=== PATIENT | female | born 1960 | race Caucasian/White ===

== ENCOUNTER 2021-08-22 23:45 | Observation (INO) | payer OTHER, SELFPAY ==
--- NOTE | ~2021-08-22 | CT_ITS ---
EXAMINATION: CT abdomen pelvis w con DATE: 08/23/2021 01:10 INDICATION: Left lower quadrant pain TECHNIQUE: Computed tomography (CT) of the abdomen and pelvis was performed with 100 cc Omnipaque 350 intravenous contrast. The dose-length product was 405.14 mGy-cm. Automated exposure control and iter ative reconstruction technique were employed. COMPARISON: None. FINDINGS: Lung bases are unremarkable. Heart size is normal. No significant pleural or pericardial ef fusion. Small hiatal hernia. There is a dilated appendix measuring 12 mm with surrounding inflammation, consistent with acute appe ndicitis. No evidence for perforation or abscess. Status post cholecystectomy with expected prominenc e of the bile ducts. The pancreas, adrenal glands are unremarkable. There is hepatosplenomegaly. There are small low-densi ty lesions in both kidneys, most likely cysts. There are nonobstructing left renal stones. Uterus is surgically absent. No free air or free fluid. IMPRESSION: 1. Acute uncomplicated appendicitis. 2: Hepatosplenomegaly Reviewed, dictated and finalized at location A. MAN
[2021-08-22 23:52] VITALS: BP 147/101; PULSE 87; RESP 20; TEMP 37; O2SAT 97
[2021-08-23] VITALS (17 sets, daily range): BP systolic 91–128; BP diastolic 48–70; PULSE 64–84; RESP 10–18; TEMP 36.1–36.4; O2SAT 91–98; BMI 26.9
[2021-08-23] MEDS: HYDROmorphone HCL INJ (*CRX) 1 MG/ML SYR 0.5 MG IV PUSH ×4 (00:14→08:04)
[2021-08-23] MEDS: ONDANSETRON INJ 4 MG/2 ML VIAL IV PUSH (00:14)
[2021-08-23 00:15] LABS: Basophils Percent Auto 0.2 % (0.2-1.2); Eosinophils Percent Auto 0.1 % (0-4.4); Hematocrit 39.6 % (37.0-47.0); Hemoglobin 13.2 g/dL (12.0-15.0); Immature Granulocyte Percent A 0.6 % (0-0.5); Lymphocytes Percent Auto 8.8 % (18.3-44.2); Mean Corpuscular HGB Conc 33.3 g/dl (32-36); Mean Corpuscular Hemoglobin 28.9 pg (26-34); Mean Corpuscular Volume 86.7 fl (80-100); Mean Platelet Volume 9.1 fl (7.4-10.4); Monocytes Absolute Auto 0.7 K/mm3 (0.1-0.6); Monocytes Percent Auto 4.4 % (2.6-8.5); Neutrophils Absolute Auto 13.7 K/mm3 (1.3-6.7); Neutrophils Percent Auto 85.9 % (45.5-73.1); Platelet Count Result 268 k/mm3 (150-375); Red Blood Count 4.57 M/mm3 (4.2-5.4); Red Cell Distribution Width 14.5 % (11.5-14.5); White Blood Count 15.9 K/mm3 (4.5-10.0)
[2021-08-23] MEDS: SODIUM CHLORIDE 0.9% IV 1,000 ML 999 ML IV CONT (00:15)
--- NOTE | 2021-08-23 00:27 | ED.ABDPAIN ---
HPI - Abdominal Pain General Chief Complaint: Abdominal Pain Stated Complaint: Abd pain Time Seen by Provider: 08/22/21 23:51 Source: patient, family and RN notes reviewed Limitations: no limitations History of Present Illness HPI narrative: 60-year-old female presents to the emergency department for evaluation of mid to lower abdominal pain which started approximately 4 PM. Patient states over the course of the day the pain has progressed lower. Patient does report associated nausea. Patient also has had multiple bowel movements. Patient states she had no change in her pain after the bowel movements. Patient does have a past surgical history of cholecystectomy and hysterectomy. Patient denies any cardiac history. Patient takes no prescription medications. Patient does have a history of baseline tremor Related Data Home Medications Medication Instructions Recorded Confirmed No Home Medications 08/23/21 08/23/21 Allergies Allergy/AdvReac Type Severity Reaction Status Date / Time No Known Allergies Allergy Unverified 12/21/14 13:00 Review of Systems Review of Systems: CONSTITUTIONAL: Denies fever, chills, or sweats. EYES: Denies visual changes, redness, or discharge. ENT: Denies rhinorrhea, congestion, sore throat, or otalgia. CARDIOVASCULAR: Denies chest pain, palpitations, or edema. RESPIRATORY: Denies cough or dyspnea. GASTROINTESTINAL: Lower abdominal pain GENITOURINARY: Denies dysuria or hematuria. SKIN: Denies rash or itching. MUSCULOSKELETAL: Denies back pain, joint pain, or myalgia. PMFSH Social History Social History Alcohol intake: current Exam Narrative: APPEARANCE: Well appearing, no pain, no distress, well-nourished. HEAD: normocephalic, atraumatic. EYES: PERRLA/EOMI, conjunctivae clear. NOSE: Normal no drainage NECK: Supple. No adenopathy, no masses. RESPIRATORY: Airway patent, respirations nonlabored. Clear to auscultation bilaterally, no rales, rhonchi, wheezing. CARDIOVASCULAR: Regular rate and rhythm without murmurs rubs or gallops. ABDOMINAL: Normal bowel sounds some left lower quadrant and suprapubic tenderness to palpation MUSCULOSKELETAL: Moves all extremities. Strength/ROM intact, No edema, No calf tenderness. NEURO: Alert. Cranial nerves II through XII intact. Good gait. Good coordination. Does have baseline tremor SKIN: Warm, dry. Normal Color Course Course Emergency Course: Patient was updated on the plans for labs and imaging. Patient did request medications for nausea and for pain control. Patient was also started on IV fluids. Consultations Consultation #1: CT was read as acute nonperforated appendicitis. Case was discussed with Dr. Aguila, on-call for surgery. Patient was started on Zosyn Vital Signs Vital signs: Vital Signs Temperature 98.6 F 08/22/21 23:52 Pulse Rate 87 08/22/21 23:52 Respiratory Rate 20 08/22/21 23:52 Blood Pressure 147/101 H 08/22/21 23:52 Pulse Oximetry 97 08/22/21 23:52 Temperature 98.6 F 08/22/21 23:52 Pulse Rate 74 08/23/21 01:17 Respiratory Rate 16 08/23/21 01:17 Blood Pressure 122/66 08/23/21 01:17 Pulse Oximetry 98 08/23/21 01:17 MDM - Abdominal Pain Lab Data Attestation: I reviewed the patient's lab results. Result diagrams: 08/23/21 00:13 08/23/21 00:09 Labs: Lab Results 08/23/21 08/23/21 08/23/21 Range/Units 00:09 00:09 00:13 WBC 15.9 H (4.5-10.0) K/mm3 RBC 4.57 (4.2-5.4) M/mm3 Hgb 13.2 (12.0-15.0) g/dL Hct 39.6 (37.0-47.0) % MCV 86.7 (80-100) fl MCH 28.9 (26-34) pg MCHC 33.3 (32-36) g/dl RDW 14.5 (11.5-14.5) % Plt Count 268 (150-375) k/mm3 MPV 9.1 (7.4-10.4) fl Immature Gran % (Auto) 0.6 H (0-0.5) % Neut % (Auto) 85.9 H (45.5-73.1) % Lymph % (Auto) 8.8 L (18.3-44.2) % [place] % (Auto) 4.4 (2.6-8.5) % Eos % (Auto) 0.1 (0-4.4) % Baso % (Auto) 0.2 (0.2-1.2) % Lymph # (Auto)
[2021-08-23 00:32] LABS: Add Urine Microscopic? NO; Appearance Urine Clear (Clear); Bilirubin Urine Negative (Negative); Blood Urine Negative (Negative); Color Urine Straw (Yellow); Glucose Urine UA Negative (Negative); Ketones Urine Negative (Negative); Leukocyte Esterase Ur Negative LEU/UL (Negative); Nitrate Urine Negative (Negative); Protein Urine Negative (Negative); Urobilinogen Urine Negative mg/dL (<2.0)
[2021-08-23 00:38] LABS: Alanine Aminotransferase 30 U/L (4-35); Albumin Level 4.7 g/dL (3.5-5.1); Alkaline Phosphatase 123 U/L (38-126); Anion Gap 10 mmol/L (8-16); Aspartate Amino Transferase 33 U/L (14-36); Bilirubin,Total 0.8 mg/dL (0.2-1.3); Blood Urea Nitrogen 16 mg/dL (7-17); Calcium 10.3 mg/dL (8.4-10.2); Carbon Dioxide 22 mmol/L (22-30); Chloride 103 mmol/L (98-107); Estimated CRCL calculation 65 ml/min; Estimated Glomerular Filt Rate > 60; Glucose 140 mg/dL (65-110); Sodium 135 mmol/L (137-145)
[2021-08-23 00:43] LABS: Lactic Acid Reflex 0.9 mmol/L (0.7-2.1)
[2021-08-23 00:45] LABS: Specific Grav Ur 1.004 (1.001-1.035)
[2021-08-23] MEDS: SODIUM CHLORIDE 0.9% IV 1,000 ML 125 ML IV CONT (02:20)
[2021-08-23 02:42] LABS: SARS-CoV-2 RNA PCR Negative
--- NOTE | 2021-08-23 03:20 | ADMGEN ---
This patient, Talia Harman, was admitted to Medical Room 349-01. Patient/family oriented to hospital policies and general routines including ID bracelet, bed and alarms, visiting hours, pain management, procedures, bathroom and other care routines, personal items, smoking policy, room service/diet, and visiting hours. Information on how to activate the Rapid Response Team has been discussed. Patient/Family are encouraged to report perceived risks to care and to ask questions if they do not understand what they are told or what they should do.
--- NOTE | 2021-08-23 07:32 | PM.IMHP ---
H&P: HPI History of Present Illness Date/Time: 08/23/21 07:32 This is a 60-year-old White female who presented last night to the emergency department for evaluation of mid to lower abdominal pain which started approximately 4 PM o 08/22/2021. Patient states over the course of the day the pain had progressed lower in the abd. and is more Rt. sided. Patient does report associated nausea. Patient also has had multiple bowel movements. Patient states she had no change in her pain after the bowel movements. Patient does have a past surgical history of cholecystectomy and hysterectomy. Patient denies any cardiac history. Patient takes no prescription medications. She is a 1 PPD smoker. Patient does have a history of baseline tremo Chief Complaint: Right lower abdominal pain Review of Systems Constitutional: Constitutional: Reports no additional constitutional complaints, Reports fatigue and Denies malaise Eyes: Eyes: Denies change in vision and Denies loss of vision ENT: Reports Normal hearing present, Denies change in voice, Denies dizziness, Denies hoarseness and Denies sore throat Cardiovascular: Cardiovascular: Denies chest pain, Denies leg edema and Denies dyspnea Respiratory: Respiratory: Denies cough, Denies dyspnea and Denies wheezing Comments: 40 pack-year history of smoking No recent screening for lung cancer Gastrointestinal: Gastrointestinal: Denies hematochezia, Denies change in bowel habits, Denies heartburn and Reports nausea ( mild upon presentation to the ED) Genitourinary: Genitourinary: Denies urinary frequency, Reports nocturia and Denies urinary incontinence Neurologic: Reports Normal hearing present, Denies confusion, Denies dizziness, Denies loss of vision, Denies memory loss and Denies seizure-like activity Psychiatric: Psychiatric: Denies confusion, Denies depression and Denies memory loss Endocrine: Endocrine: Denies cold intolerance and Reports fatigue Hematologic/Lymphatic: Hematologic/Lymphatic: Denies easy bleeding and Denies easy bruising Allergic/Immunologic: Allergic/Immunologic: Denies wheezing PMFSH Past Medical History Medical History (Updated 08/23/21 @ 12:04 by Amrit Aguila MD) COPD (chronic obstructive pulmonary disease) Ovarian cancer in remission Tobacco abuse Tremor Surgical History Surgical History History of hysterectomy with bilateral oophorectomy History of laparoscopic cholecystectomy Family History Family History Mother Kidney failure Father Diabetes mellitus FHx: kidney cancer Sibling Diabetes mellitus Social History Social History Smoking packs per day: 1 Smoking cigarettes per day: 20.0 Smoking status: Current every day smoker Alcohol intake: never Substance use: never Spiritual care concerns: No Meds Home Medications and Allergies Home Medications Medication Instructions Recorded Confirmed Type acidophilus-pectin, citrus 1 cap PO DAILY 08/23/21 08/23/21 History [Acidophilus Probiotic] aspirin [Low-Dose Aspirin] 81 mg PO DAILY 08/23/21 08/23/21 History bismuth subsalicylate 2 tablet PO Q1H PRN 08/23/21 08/23/21 History [Pepto-Bismol] calcium 1,200 mg PO DAILY 08/23/21 08/23/21 History cholecalciferol (vitamin D3) 25 mcg PO DAILY 08/23/21 08/23/21 History [Vitamin D3] ibuprofen [Advil] 200 mg PO QID PRN 08/23/21 08/23/21 History fwwer-ha-4-yna-bye-yovjpmx-ast 1 cap PO BID 08/23/21 08/23/21 History [krill oil] multivit with min-folic acid 1 tablet PO DAILY 08/23/21 08/23/21 History [Adult One Daily Multivitamin] azqvfcogvjnn-thttiriw-psdhjg 1 tablet PO DAILY 08/23/21 08/23/21 History [Centrum Silver] vitamin B complex 1 cap PO DAILY 08/23/21 08/23/21 History Allergies Allergy/AdvReac Type Severity Reaction Status Date / Time leandro
--- NOTE | 2021-08-23 09:21 | ECG_ITS ---
Measurements Intervals [place] Rate: 78 P: 42 IA: 165 QRS: -19 QRSD: 89 T: 24 QT: 372 QTc: 426 Interpretive Statements SINUS RHYTHM BORDERLINE R WAVE PROGRESSION, ANTERIOR LEADS BORDERLINE ST-T WAVE ABNORMALITY- INF/LAT LEADS BASELINE ARTIFACT- I, II, III, AVR, AVL, AVF, V4-V5 BORDERLINE ECG Electronically Signed On 08-23-2021 14:21:42 [employer]IVER by Sean Guardado D.O.
--- NOTE | 2021-08-23 09:40 | PC.NURSE ---
Pt down to surgery
--- NOTE | 2021-08-23 09:46 | WPDANESEPPF ---
Anes - Initial Pre Proc Eval Procedure: Operation Date: 08/23/21 09:30 Proposed Procedures p Laparoscopic Appendectomy - Amrit Aguila MD Date/Time: 08/23/21 09:46 Surgeon: Amrit Aguila MD Pre Op Diagnosis: Acute Appendicitis Patient Data Age: 60 Gender: F Height: 1.65 m Weight: 73.3 kg Last Vital Signs Temp 36.2 C L 08/23/21 06:00 Pulse 74 08/23/21 06:00 Resp 16 08/23/21 06:00 BP 101/62 08/23/21 06:00 Pulse Ox 93 08/23/21 06:00 Allergies Allergy/AdvReac Type Severity Reaction Status Date / Time apple AdvReac Itching Verified 08/23/21 07:24 Home Medications Medication Instructions Recorded Confirmed Type acidophilus-pectin, citrus 1 cap PO DAILY 08/23/21 08/23/21 History [Acidophilus Probiotic] aspirin [Low-Dose Aspirin] 81 mg PO DAILY 08/23/21 08/23/21 History bismuth subsalicylate 2 tablet PO Q1H PRN 08/23/21 08/23/21 History [Pepto-Bismol] calcium 1,200 mg PO DAILY 08/23/21 08/23/21 History cholecalciferol (vitamin D3) 25 mcg PO DAILY 08/23/21 08/23/21 History [Vitamin D3] ibuprofen [Advil] 200 mg PO QID PRN 08/23/21 08/23/21 History aqbaq-is-0-qrt-lsr-rlagsjs-ast 1 cap PO BID 08/23/21 08/23/21 History [krill oil] multivit with min-folic acid 1 tablet PO DAILY 08/23/21 08/23/21 History [Adult One Daily Multivitamin] qeplvwiwlgog-fdonntch-omvyds 1 tablet PO DAILY 08/23/21 08/23/21 History [Centrum Silver] vitamin B complex 1 cap PO DAILY 08/23/21 08/23/21 History Laboratory Tests 08/23/21 08/23/21 08/23/21 00:09 00:09 00:13 WBC 15.9 K/mm3 H K/mm3 (4.5-10.0) RBC 4.57 M/mm3 M/mm3 (4.2-5.4) Hgb 13.2 g/dL g/dL (12.0-15.0) Hct 39.6 % % (37.0-47.0) MCV 86.7 fl fl (80-100) MCH 28.9 pg pg (26-34) MCHC 33.3 g/dl g/dl (32-36) RDW 14.5 % % (11.5-14.5) Plt Count 268 k/mm3 k/mm3 (150-375) MPV 9.1 fl fl (7.4-10.4) Immature Gran % (Auto) 0.6 % H % (0-0.5) Neut % (Auto) 85.9 % H % (45.5-73.1) Lymph % (Auto) 8.8 % L % (18.3-44.2) [place] % (Auto) 4.4 % % (2.6-8.5) Eos % (Auto) 0.1 % % (0-4.4) Baso % (Auto) 0.2 % % (0.2-1.2) Lymph # (Auto) 1.40 K/mm3 K/mm3 (0.9-3.2) [place] # (Auto) 0.7 K/mm3 H K/mm3 (0.1-0.6) Eos # (Auto) 0.0 K/mm3 K/mm3 (0-0.3) Baso # (Auto) 0.0 K/mm3 K/mm3 (0.0-0.1) Abs Immat Gran (auto) 0.10 K/mm3 H K/mm3 (0.00-0.031) Absolute Neuts (auto) 13.7 K/mm3 H K/mm3 (1.3-6.7) Absolute Nucleated RBC 0.0 K/mm3 K/mm3 (0.0-0.012) Nucleated RBC % 0.0 % % (0.0-0.2) Sodium 135 mmol/L L mmol/L (137-145) Potassium 4.0 mmol/L mmol/L (3.4-5.0) Chloride 103 mmol/L mmol/L (98-107) Carbon Dioxide 22 mmol/L mmol/L (22-30) Anion Gap 10 mmol/L mmol/L (8-16) BUN 16 mg/dL mg/dL (7-17) Creatinine 0.70 mg/dL mg/dL (0.7-1.0) Estim Creat Clear Calc 65 ml/min ml/min Estimated GFR > 60 (59 - ) Glucose 140 mg/dL H mg/dL (65-110) Lactic Acid 0.9 mmol/L mmol/L (0.7-2.1) Calcium 10.3 mg/dL H mg/dL (8.4-10.2) Total Bilirubin 0.8 mg/dL mg/dL (0.2-1.3) AST 33 U/L U/L (14-36) ALT 30 U/L U/L (4-35) Alkaline Phosphatase 123 U/L U/L (38-126) Total Protein 9.0 g/dL H g/dL (6.3-8.2) Albumin 4.7 g/dL g/dL (3.5-5.1) Urine Color Urine Appearance Urine pH Ur Specific [place] Urine Protein Urine Glucose (UA) Urine Ketones Ur Blood (Man) Urine Nitrate Urine Bilirubin Urine Urobilinogen Leukocyte Esterase Rfl SARS-CoV-2 RNA (RT-PCR) 08/23/21
[2021-08-23] MEDS: BUPIVACAINE/EPINEPHRINE 0.5% 30 ML VIAL 20 ML INFILTRATE (10:38)
[2021-08-23] MEDS: LACTATED RINGERS 1,000 ML 30 ML IV CONT ×2 (11:45→12:30)
--- NOTE | 2021-08-23 12:05 | W.PM.PROC2 ---
Procedure Note - Detailed Date of Procedure 08/23/21 Pre-op Diagnosis Acute uncomplicated Appendicitis Post-op Diagnosis same Procedure Performed laparoscopic appendectomy Surgeon Amrit Aguila MD [employer] Consultant Collin STEWART. [facility] Anesthesia general Description of Procedure The patient was seen again in her hospital Room. The risks, benefits, complications, treatment options, and expected outcomes were discussed with the patient and/or family. The possibilities of reaction to medication, pulmonary aspiration, perforation of viscus, bleeding, recurrent infection, finding a normal appendix, the need for additional procedures, failure to diagnose a condition, and creating a complication requiring transfusion or operation were discussed. There was concurrence with the proposed plan and informed consent was obtained. The site of surgery was properly noted/marked. The patient was taken to Operating Room, and a time out was preformed which identified this as the proper patient, and the procedure verified as laparoscopic appendectomy, possible open. The patient was placed in the supine position and general anesthesia was induced, along with placement of an orogastric tube, SCD hose, and a Linder catheter. The abdomen was prepped and draped in a sterile fashion. A 5 mm left upper quadrant subcostal incision was made and the peritoneal cavity was accessed using the Veress needle technique. Once the abdomen was insufflated to 14 mmHg pressure a 5 mm XL trocar over the 0? 5 mm scope was carefully twisted into the abdomen via the umbilicus. The pneumoperitoneum was then established to steady pressure of 14 mm Hg. A 12 mm laparoscopic port was placed through a transverse suprapubic incision. An additional 5 mm cannula was then placed in the latoya-umbilical area under direct vision. A careful evaluation of the entire abdomen was carried out. The patient was placed in Trendelenburg and left lateral decubitus position. The small intestines were retracted in the cephalad and left lateral direction away from the pelvis and right lower quadrant. The patient was found to have an enlarged and inflamed appendix that was extending into the retrocecal area behind the junction of the ileum and cecum. It was somewhat difficult to rotate up but using the L-shaped Bovie cautery hook and careful blunt dissection with a Kittner I was able to rotate the appendix up to we could see it better. There was no evidence of perforation. The appendix was carefully dissected. Once it was free a 45 mm ethicon endogastroentestinal stapler with a vascular load was placed across the mesoappendix. This was fired and hemostasis was checked along the staple line and appeared to be adequate. For this patient, this divided the entire mesoappendix and we were able to proceed immediately to stapling off the appendix at it's junction with the cecum. The appendix was then divided at its base using the same 45 mm stapler with a 3.5 mm bowel wall load. Minimal appendiceal stump was left in place. There was no evidence of bleeding, leakage, or complication after division of the appendix at its junction with the cecum.. The appendix was then placed in an endobag which had been brought through the 12 mm suprapubic port site. The appendix and the bag were then extracted through this larger port site in the suprapubic position. The suprapubic port site was closed using a #1 Polysorb suture passed with a Christiano-Higginbotham cone and needle suture passer at the level of the fascia. The trocar site skin wounds were closed using 4-0 undyed Monocryl and surgical glue. Instrument, sponge, and needle counts were correct at the conclusion of the case. Implants none Estimated Blood Loss -10.0 Urine Output -25.0 Drains No Packing No Pathology yes (appendix) Complications No immediate complications Condition stable Disposition PACU
--- NOTE | 2021-08-23 18:48 | PM.DS ---
DS: Admitting Diagnosis Discharge Date 08/23/2021 Admitting Diagnosis Acute uncomplicated appendicitis DS: Discharge Diagnosis Discharge Diagnosis (1) Acute appendicitis: Onset Date: ~08/22/21 Qualifiers: Acute appendicitis type: unspecified acute appendicitis type Qualified Code(s): K35.80 - Unspecified acute appendicitis Code(s): K35.80 - Unspecified acute appendicitis Status: Acute Assessment and Plan: This was the main reason for the patient's admission. She was an observation admission because she would stay a short visit with either surgical or antibiotic treatment options. After a thorough discussion the patient had selected a surgical option and laparoscopic appendectomy was performed. There was no sign of perforation. Therefore, antibiotics were stopped after her preop dose and she was advanced on her diet postoperatively. She was feeling well on the evening of the night of day of surgery so having discussed these week things with her previously and with her nurse she is discharged at this time. (2) Essential tremor: Onset Date: Unknown Code(s): G25.0 - Essential tremor Status: Acute Assessment and Plan: patient is not a medication for this routinely. She will discuss this further on her 1st visit with Dr. Carlson. She may want to have something available for more stressful situations as this seems to be at worst during those times. However, she prefers not to have a continuous medication for if possible. (3) Cigarette smoker: Onset Date: Unknown Code(s): F17.210 - Nicotine dependence, cigarettes, uncomplicated Status: Acute Assessment and Plan: I did spend time discussing with her both pre and postoperatively the recommendation for smoking cessation. Paperwork was provided to her on discharge she will strongly consider stopping smoking. Also discussed this with her during her postop period I called him about her situation and recovery surgery from the recovery room. He will be supportive. I encouraged her to discuss this openly with Robyn when she has her 1st visit with their practice. I also briefly mentioned and encouraged the possibility of a low-dose CT scan of the chest to screen for lung cancer. I believe she will be of the age and amount of smoking that would qualify her for that screening test. DS: Summary Hospital Course Hospital Course: Patient presented to the emergency room with lower abdominal pain. This has been ongoing for less than 24 hours period please see history and physical further details.The patient had selected a surgical option and laparoscopic appendectomy was performed. There was no sign of perforation. Therefore, antibiotics were stopped after her preop dose and she was advanced on her diet postoperatively. She was feeling well on the evening of the night of day of surgery so having discussed these week things with her previously and with her nurse she is discharged at this time. I discussed discharge with the patient. I encouraged her to limit her core body exercises until she visits with me in the postop period around 2 weeks from now. She may walk as much as she is comfortable and other structures are in the discharge instructions below. Time spent discussing smoking cessation with patient: 3 to 10 minutes Status at Discharge Cognitive/behavioral status at discharge: normal Functional status at discharge: independent ambulation Overall status at discharge: patient is not back to baseline ( Still has some limitations of the core due to her incisions.) Time Spent with Patient Time attestation: Total time spent providing and/or coordinating discharge services: Time spent: Less than 30 minutes Exam Const: General: cooperative, comfortable, alert and awake Orientation/consciousness: patient oriented x3 HENMT: Head: normal to inspection Mouth: Yes moist mucous membranes Eyes: Scle
== END 2021-08-23 17:10 | disposition home or self-care (01) ==
LOC: ANHED 08-23 01:44 → ANH3MED 08-23 02:48
PROVIDERS: Admitting Provider Surgery; Emergency Provider Emergency Medicine; PCP Family Medicine; Visit Provider Surgery
PROC: 0DTJ4ZZ Resection of Appendix, Percutaneous Endoscopic Approach (ICD-10-PCS; CPT 44970; principal; 2021-08-23 09:30)
DX: K35.30 Acute appendicitis with localized peritonitis, without perforation or gangrene (principal); K38.1 Appendicular concretions; R10.31 Right lower quadrant pain; F17.210 Nicotine dependence, cigarettes, uncomplicated; G25.0 Essential tremor; Z20.822 Contact with and (suspected) exposure to COVID-19; Z85.43 Personal history of malignant neoplasm of ovary; Z79.82 Long term (current) use of aspirin; Z90.49 Acquired absence of other specified parts of digestive tract; Z90.710 Acquired absence of both cervix and uterus
CPT/HCPCS: 44970; 36415; 74177; 80053; 81003; 83605; 85025; 88304; 93005; 96361; 96365; 96375; 96376; 99285; C9803; G0378; J0131; J1100; J1170; J2250; J2370; J2405; J2543; J2704; J2710; J3010; J7030; J7120; Q9967; U0003; U0005

== ENCOUNTER 2021-11-12 07:46 | Outpatient (CLI) | payer OTHER, SELFPAY ==
--- NOTE | ~2021-11-12 | MM_ITS ---
EXAMINATION: MM screening lupe BI w oscar HISTORY: Screening TECHNIQUE: Craniocaudal and mediolateral oblique 3-D tomosynthesis images were obtained and synthetic 2-D images were generated. CAD analysis was submitted and interpreted. COMPARISON: Comparison to multiple prior studies sequentially, with oldest reviewed study dated 11/08. BREAST PARENCHYMAL COMPOSITION: There are scattered areas of fibroglandular density. FINDINGS: There is no evidence of suspicious mass, calcification, or architectural distortion to sugg est malignancy in either breast. There has been no suspicious interval change. IMPRESSION: 1. No mammographic evidence of malignancy. 2. Recommend routine screening mammography in one year. BI-RADS Category 1: Negative Reviewed, dictated and finalized at location A.
== END 2021-11-12 07:47 | disposition home or self-care (01) ==
PROVIDERS: PCP Family Medicine; Visit Provider Family Medicine
DX: Z12.31 Encounter for screening mammogram for malignant neoplasm of breast (principal)
CPT/HCPCS: 77063; 77067

== ENCOUNTER 2022-05-09 09:16 | Emergency (ER) | payer OTHER, SELFPAY ==
[2022-05-09] VITALS (11 sets, daily range): BP systolic 136–153; BP diastolic 63–112; PULSE 72–92; RESP 16–25; O2SAT 81–97
--- NOTE | ~2022-05-09 | XR_ITS ---
EXAMINATION: XR chest 2V DATE: 05/09/2022 09:50 INDICATION: Left-sided chest pain radiating into the neck TECHNIQUE: PA and lateral views of the chest were obtained. COMPARISON: None FINDINGS: Mild biapical pleural-parenchymal scarring. No other airspace opacities, pulmonary edema, pleural eff usion or pneumothorax. The cardiomediastinal silhouette is normal. Mild thoracic spondylosis with mil d anterior wedging of a midthoracic vertebral body. IMPRESSION: 1. No acute cardiopulmonary disease. Reviewed, dictated and finalized at location A.
--- NOTE | 2022-05-09 09:20 | ECG_ITS ---
Measurements Intervals [place] Rate: 89 P: 43 FL: 159 QRS: -34 QRSD: 88 T: 58 QT: 337 QTc: 412 Interpretive Statements SINUS RHYTHM MARKED LEFT AXIS DEVIATION [QRS AXIS < -30] Poor R-wave progression COMPARED TO ECG 08/23/2021 09:38:06 NO SIGNIFICANT CHANGE Electronically Signed On 05-09-2022 19:45:30 CDT by Sarai Guy M.D.
--- NOTE | 2022-05-09 09:30 | ED.CHESTPAIN ---
HPI - Chest Pain General Chief Complaint: Chest Pain Stated Complaint: CP Time Seen by Provider: 05/09/22 09:19 History of Present Illness HPI narrative: Patient is a 61-year-old female with a history of smoking here for evaluation of pain in her right axilla and breast over the past day. Patient states the pain is described as a stabbing sensation, not provoked by exertion or certain positions, but is worse when she pushes on the area. Patient taking baby aspirin this morning with relief of her symptoms. She has also been experiencing neck pain over the past 3 days on the right side, sharp and stabbing, shooting down her arm. Patient has been treated for pneumonia by her PCP, her symptoms have improved but she has still been coughing over the past several weeks. Denies any shortness of breath, fevers, chills, leg swelling. Related Data Home Medications Medication Instructions Recorded Confirmed acidophilus 100 million 1 cap PO DAILY 08/23/21 04/21/22 cell-pectin, citrus 10 mg capsule aspirin 81 mg tablet 81 mg PO DAILY 08/23/21 04/21/22 calcium 600 mg capsule 1,200 mg PO DAILY 08/23/21 04/21/22 cholecalciferol (vitamin D3) 25 25 mcg PO DAILY 08/23/21 04/21/22 mcg (1,000 unit) capsule (Vitamin D3) krill 1,000 mg-omega-3 170 mg-dha 1 cap PO BID 08/23/21 04/21/22 50 mg-epa 80 jm-nraxwq-lulhn capsule (krill oil) qynpyvmaybfm-fakrkxsh-xoxtsz tablet 1 tablet PO DAILY 08/23/21 04/21/22 vitamin B complex 1 cap PO DAILY 08/23/21 04/21/22 apple cider vinegar 500 mg tablet mg PO 09/15/21 04/21/22 Allergies Allergy/AdvReac Type Severity Reaction Status Date / Time apple AdvReac Itching Verified 05/09/22 10:14 Review of Systems Review of Systems: Gen: Denies fevers or chills Eyes: Denies eye pain or visual change ENT: Denies congestion Respiratory: Reports cough. Denies shortness of breath CV: Denies chest pain or palpitations GI: Denies abdominal pain nausea, emesis or diarrhea : denies burning, urgency, frequency or hematuria Musculoskeletal: Reports pain in the right axilla/breast. Denies back pain or muscle pain Neuro: Denies numbness, tingling, weakness or focal weakness Skin: Denies rash Except as documented, all other systems reviewed and negative PMFSH Past Medical History Medical History COPD (chronic obstructive pulmonary disease) History of skin cancer History of uterine cancer Ovarian cancer in remission Tobacco abuse Tremor Surgical History Surgical History History of hysterectomy with bilateral oophorectomy History of laparoscopic appendectomy 08/23/21 History of laparoscopic cholecystectomy Family History Family History Mother Kidney failure Father Diabetes mellitus FHx: kidney cancer Sibling Diabetes mellitus Social History Social History Smoking packs per day: 1 Smoking cigarettes per day: 20.0 Smoking status: Current every day smoker Tobacco type: cigarettes Second hand tobacco smoke exposure: No Alcohol intake: never Alcohol use details: rare Substance use: never Substance use type: does not use Gender identity (if verbalized by the patient): Female Sexual Orientation (if Verbalized by the Patient): Straight or Heterosexual Spiritual care concerns: No Exam Narrative: APPEARANCE: Well appearing, no pain in distress, well-nourished. Head: Normocephalic and atraumatic. EYES: PERRLA/EOMI, conjunctivae clear NOSE: No nasal drainage EARS: External ear normal in appearance THROAT: Oropharynx is clear. Mucous membranes are moist. NECK: Supple. No adenopathy, no masses. RESPIRATORY: Airway patent, respirations nonlabored. Clear to auscultation bilaterally, no rales, rhonchi, wheezing. CARDIOVASCULAR: Regular rate and rhyt
[2022-05-09 09:54] LABS: Basophils Percent Auto 0.3 % (0.2-1.2); Eosinophils Absolute Auto 0.1 K/mm3 (0-0.3); Eosinophils Percent Auto 1.5 % (0-4.4); Hematocrit 38.6 % (37.0-47.0); Hemoglobin 12.7 g/dL (12.0-15.0); Immature Granulocyte Absolute 0.03 K/mm3 (0.00-0.031); Immature Granulocyte Percent A 0.4 % (0-0.5); Lymphocytes Absolute Auto 1.38 K/mm3 (0.9-3.2); Lymphocytes Percent Auto 18.3 % (18.3-44.2); Mean Corpuscular HGB Conc 32.9 g/dl (32-36); Mean Corpuscular Hemoglobin 28.2 pg (26-34); Mean Corpuscular Volume 85.6 fl (80-100); Mean Platelet Volume 9.5 fl (7.4-10.4); Monocytes Absolute Auto 0.5 K/mm3 (0.1-0.6); Monocytes Percent Auto 6.5 % (2.6-8.5); Neutrophils Absolute Auto 5.5 K/mm3 (1.3-6.7); Platelet Count Result 234 k/mm3 (150-375); Red Blood Count 4.51 M/mm3 (4.2-5.4); Red Cell Distribution Width 13.9 % (11.5-14.5); White Blood Count 7.5 K/mm3 (4.5-10.0)
[2022-05-09 10:07] LABS: Alanine Aminotransferase 26 U/L (6-35); Albumin Level 4.2 g/dL (3.5-5.1); Alkaline Phosphatase 90 U/L (38-126); Anion Gap 13 mmol/L (8-16); Aspartate Amino Transferase 37 U/L (14-36); Bilirubin,Total 0.5 mg/dL (0.2-1.3); Blood Urea Nitrogen 21 mg/dL (7-17); Calcium 8.6 mg/dL (8.4-10.2); Carbon Dioxide 22 mmol/L (22-30); Chloride 108 mmol/L (98-107); Estimated Glomerular Filt Rate > 60; Glucose 134 mg/dL (65-110); Lipase 114 U/L (23-300); Potassium 3.6 mmol/L (3.4-5.0); Sodium 143 mmol/L (137-145)
[2022-05-09 10:08] LABS: INR 0.9; Partial Thromboplastin Time 26.4 SECONDS (22.3-36.8)
[2022-05-09 10:18] LABS: Troponin I < 0.012 ng/mL (0.000-0.034)
== END 2022-05-09 11:16 | disposition home or self-care (01) ==
PROVIDERS: Emergency Provider Emergency Medicine; PCP Family Medicine
DX: R07.89 Other chest pain (principal); J44.9 Chronic obstructive pulmonary disease, unspecified; Z85.828 Personal history of other malignant neoplasm of skin; Z85.42 Personal history of malignant neoplasm of other parts of uterus; Z85.43 Personal history of malignant neoplasm of ovary; Z90.710 Acquired absence of both cervix and uterus; Z90.722 Acquired absence of ovaries, bilateral; F17.210 Nicotine dependence, cigarettes, uncomplicated; Z79.82 Long term (current) use of aspirin
CPT/HCPCS: 36415; 71046; 80053; 83690; 84484; 85025; 85610; 85730; 93005; 99284

== ENCOUNTER 2023-09-21 13:01 | Emergency (ER) | payer OTHER, SELFPAY ==
--- NOTE | ~2023-09-21 | CT_ITS ---
EXAMINATION: CT abdomen pelvis w con DATE: 09/21/2023 19:37 INDICATION: Low abdominal pain. Bloating. TECHNIQUE: Computed tomography (CT) of the abdomen and pelvis was performed with 100 mL Omnipaque 350 intravenous contrast. Automated exposure control and iterative reconstruction technique were employe d. The dose-length product was 302.65 mGy-cm. COMPARISON: CT abdomen and pelvis 08/23/2021 FINDINGS: The visualized portions of the lung bases demonstrate emphysema and mild atelectasis. No pl eural effusion. The heart size is normal. No pericardial effusion. The liver is normal. There are johnna nges of cholecystectomy. The spleen, pancreas, and adrenal glands are normal. There are cysts in the kidneys measuring up to 18 mm on the left. There are no dilated loops of bowel. There are changes of appendectomy. Aortic atherosclerosis is noted. There are no pathologically enlarged lymph nodes. Ther e is no free intraperitoneal fluid. There is mild thoracic and lumbar spondylosis. 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 IMPRESSION: 1. No etiology for the patient's symptoms. Reviewed, dictated and finalized at location E. [employer]
--- NOTE | 2023-09-21 13:41 | ED.ABDPAIN ---
HPI - Abdominal Pain General Chief Complaint: Abdominal Pain <Marta Silva PA-C - Last Filed: 09/24/23 00:44> Stated Complaint: abd pain <Marta Silva PA-C - Last Filed: 09/24/23 00:44> Time Seen by Provider: 09/21/23 13:41 <Marta Silva PA-C - Last Filed: 09/24/23 00:44> Focused HPI: This is a 62 year old female that presents to the ER for lower abdominal pain. Worsening since yesterday. Reports associated nausea and urinary frequency. Denies fever, vomiting, diarrhea. GENERAL: Well-appearing, well-nourished, and in no acute distress. HEAD: Normocephalic, atraumatic. CHEST: Clear to auscultation. ?No respiratory distress. HEART: Regular rate and rhythm.? NEURO: ?Alert and oriented x3. Patient screened in triage and initial orders placed.? ?Additional care and disposition to be based upon?diagnostic testing and treatment. <Marta Silva PA-C - Last Filed: 09/24/23 00:44> History of Present Illness HPI narrative: 62-year-old female presenting with abdominal pain. States that she has noticed over the last week or 2. It is in her lower abdomen and is worse with eating. Associated with bloating. No constipation or diarrhea, no melena or hematochezia. Reports urinary frequency but no dysuria or hematuria. No vomiting. No further complaints. <Liane Jones MD - Last Filed: 09/26/23 18:01> Related Data Home Medications: Home Medications Medication Instructions Recorded Confirmed acidophilus 100 million 1 cap PO DAILY 08/23/21 09/26/23 cell-pectin, citrus 10 mg capsule aspirin 81 mg tablet 81 mg PO DAILY 08/23/21 09/26/23 calcium 600 mg capsule 1,200 mg PO DAILY 08/23/21 09/26/23 cholecalciferol (vitamin D3) 25 25 mcg PO DAILY 08/23/21 09/26/23 mcg (1,000 unit) capsule (Vitamin D3) krill 1,000 mg-omega-3 170 mg-dha 1 cap PO BID 08/23/21 09/26/23 50 mg-epa 80 fl-znliqf-mevje capsule (krill oil) iwfymvnmdxjh-zengyvdh-etnbvq tablet 1 tablet PO DAILY 08/23/21 09/26/23 vitamin B complex 1 cap PO DAILY 08/23/21 09/26/23 apple cider vinegar 500 mg tablet mg PO 09/15/21 09/26/23 <Marta Silva PA-C - Last Filed: 09/24/23 00:44> Allergies/Adverse Reactions: Allergies Allergy/AdvReac Type Severity Reaction Status Date / Time apple AdvReac Itching Verified 09/26/23 08:17 <Marta Silva PA-C - Last Filed: 09/24/23 00:44> Review of Systems Review of Systems: All systems reviewed & are unremarkable except as noted in HPI and below <Liane Jones MD - Last Filed: 09/26/23 18:01> [facility] Past Medical History Medical History: Medical History COPD (chronic obstructive pulmonary disease) History of skin cancer History of uterine cancer Ovarian cancer in remission Tobacco abuse Tremor <Marta Silva PA-C - Last Filed: 09/24/23 00:44> Surgical History Surgical History: Surgical History History of hysterectomy with bilateral oophorectomy History of laparoscopic appendectomy 08/23/21 History of laparoscopic cholecystectomy <Marta Silva PA-C - Last Filed: 09/24/23 00:44> Family History Family History: Family History Mother Kidney failure Father Diabetes mellitus FHx: kidney cancer Sibling Diabetes mellitus <Marta Silva PA-C - Last Filed: 09/24/23 00:44> Social History Social History: Social History (Updated 09/26/23 @ 08:18 by Sweetie Ruvalcaba) Social History: Smoking packs per day: 1 Smoking cigarettes per day: 20.0 Smoking status: Current every day smoker Tobacco type: cigarettes Second hand tobacco smoke exposure: No Alcohol intake: never Alcohol use details: rarely Substance use: never Substance use type: does not use Do You Feel Safe in your Home?: Yes Lack of Transportation: No Lack of Food: Ne
[2023-09-21 13:47] VITALS: BP 140/92; PULSE 103; RESP 18; TEMP 36.5; O2SAT 97
[2023-09-21 14:52] LABS: Basophils Percent Auto 0.2 % (0.2-1.2); Eosinophils Percent Auto 0.3 % (0-4.4); Hematocrit 43.7 % (37.0-47.0); Hemoglobin 14.6 g/dL (12.0-15.0); Immature Granulocyte Absolute 0.05 K/mm3 (0.00-0.031); Immature Granulocyte Percent A 0.5 % (0-0.5); Lymphocytes Absolute Auto 1.44 K/mm3 (0.9-3.2); Lymphocytes Percent Auto 13.8 % (18.3-44.2); Mean Corpuscular HGB Conc 33.4 g/dl (32-36); Mean Corpuscular Hemoglobin 28.9 pg (26-34); Mean Corpuscular Volume 86.4 fl (80-100); Mean Platelet Volume 9.6 fl (7.4-10.4); Monocytes Absolute Auto 0.5 K/mm3 (0.1-0.6); Monocytes Percent Auto 4.9 % (2.6-8.5); Neutrophils Absolute Auto 8.4 K/mm3 (1.3-6.7); Neutrophils Percent Auto 80.3 % (45.5-73.1); Platelet Count Result 250 k/mm3 (150-375); Red Blood Count 5.06 M/mm3 (4.2-5.4); Red Cell Distribution Width 13.5 % (11.5-14.5); White Blood Count 10.5 K/mm3 (4.5-10.0)
[2023-09-21 15:02] LABS: Appearance Urine Clear (Clear); Bacteria Urine None Seen /hpf; Bilirubin Urine Negative (Negative); Blood Urine Negative (Negative); Color Urine Yellow (Yellow); Glucose Urine UA Negative (Negative); Ketones Urine Negative (Negative); Leukocyte Esterase Ur 1+ LEU/UL (Negative); Need Manual Microscopic Reviewed; Nitrate Urine Negative (Negative); Non Pathogenic Casts 0-2; Protein Urine Negative (Negative); RBC Urine 0-2 /hpf (0-2); Specific Grav Ur 1.002 (1.001-1.035); Squamous Epithelial Cell Urine None seen /hpf (Few); Urobilinogen Urine 0.2 mg/dL (<2.0); WBC Urine 0-5 /hpf; pH Urine 6.5 (5.0-9.0)
[2023-09-21 15:03] LABS: Add Urine Microscopic? YES
[2023-09-21 16:51] LABS: Alanine Aminotransferase 37 U/L (6-35); Albumin Level 4.7 g/dL (3.5-5.1); Alkaline Phosphatase 116 U/L (38-126); Anion Gap 9 mmol/L (8-16); Aspartate Amino Transferase 34 U/L (14-36); Bilirubin,Total 0.7 mg/dL (0.2-1.3); Blood Urea Nitrogen 13 mg/dL (7-17); Carbon Dioxide 24 mmol/L (22-30); Chloride 106 mmol/L (98-107); Estimated CRCL calculation 61 ml/min; Estimated Glomerular Filt Rate > 60; Glucose 101 mg/dL (65-110); Lipase 81 U/L (23-300); Potassium 3.9 mmol/L (3.4-5.0); Sodium 139 mmol/L (137-145)
[2023-09-21] MEDS: SODIUM CHLORIDE 0.9% IV 1,000 ML 999 ML IV CONT (18:29)
[2023-09-21] MEDS: KETOROLAC 30 MG/ML VIAL (*BKC) IV PUSH (18:30)
[2023-09-21 20:22] VITALS: BP 140/90; PULSE 95; RESP 16; O2SAT 97
== END 2023-09-21 20:22 | disposition home or self-care (01) ==
PROVIDERS: Physician Assistant; Emergency Provider Emergency Medicine; PCP Family Medicine
DX: R10.30 Lower abdominal pain, unspecified (principal); F17.210 Nicotine dependence, cigarettes, uncomplicated; J44.9 Chronic obstructive pulmonary disease, unspecified
CPT/HCPCS: 36415; 74177; 80053; 81001; 83690; 85025; 96361; 96374; 99284; J1885; J7030; Q9967

== ENCOUNTER 2023-11-25 13:52 | Outpatient (CLI) | payer OTHER, SELFPAY ==
--- NOTE | ~2023-11-25 | MM_ITS ---
EXAMINATION: MM screening lupe BI w oscar HISTORY: Screening mammogram TECHNIQUE: Craniocaudal and mediolateral oblique 3-D tomosynthesis images were obtained and synthetic 2-D images were generated. CAD analysis was submitted and interpreted. COMPARISON: November 12, 2021, June 18, 2016 bilateral screening mammogram examinations BREAST PARENCHYMAL COMPOSITION: There are scattered areas of fibroglandular density. FINDINGS: There is no evidence of suspicious mass, calcification, or architectural distortion to sugg est malignancy in either breast. There has been no suspicious interval change. IMPRESSION: 1. No mammographic evidence of malignancy. 2. Recommend routine screening mammography in one year. BI-RADS Category 1: Negative Reviewed, dictated and finalized at location B.
== END 2023-11-25 13:53 | disposition home or self-care (01) ==
LOC: ANHIMG 13:54
PROVIDERS: PCP Family Medicine; Visit Provider Family Medicine
DX: Z12.31 Encounter for screening mammogram for malignant neoplasm of breast (principal)
CPT/HCPCS: 77063; 77067

== ENCOUNTER 2024-04-19 10:33 | Emergency (ER) | payer OTHER, SELFPAY ==
--- NOTE | ~2024-04-19 | XR_ITS ---
XR chest 1V portable Ordering provider: Milind Rey MD History: 63 years Female with . URI symptoms x10 days . Comparison: May 09, 2022 FINDINGS: MEDIASTINUM: The cardiac silhouette is not enlarged. LUNGS: No infiltrates, effusions or pneumothorax. Slightly prominent markings bilaterally. OTHER: No free air under the diaphragm. IMPRESSION: No acute cardiopulmonary pathology. Reviewed, dictated and finalized at location A.
[2024-04-19 10:48] VITALS: BP 144/76; PULSE 110; RESP 17; TEMP 36.4; O2SAT 96
[2024-04-19 11:25] VITALS: RESP 20; O2SAT 99
[2024-04-19 11:26] LABS: Influenza A QL RT-PCR Negative (Negative); Influenza B QL RT-PCR Negative (Negative); SARS-CoV-2 RNA PCR Negative (Negative)
--- NOTE | 2024-04-19 11:32 | ECG_ITS ---
Test Date: 2024-04-19 12:08:55 Measurements Intervals [place] Rate: 89 P: 33 CO: 159 QRS: -37 QRSD: 88 T: 54 QT: 352 QTc: 429 Interpretive Statements SINUS RHYTHM WITH OCCASIONAL VENTRICULAR PREMATURE COMPLEXES MARKED LEFT AXIS DEVIATION [QRS AXIS < -30] No previous ECG available for comparison Electronically Signed On 04-19-2024 12:31:22 CDT by Stevie Mcdaniels M.D.
[2024-04-19] MEDS: KETOROLAC 15 MG/ML VIAL (*BKC) IV PUSH (12:01)
[2024-04-19] MEDS: DICYCLOMINE HCL INJ 20 MG/2 ML VIAL IM (12:01)
[2024-04-19] MEDS: SODIUM CHLORIDE 0.9% IV 2,000 ML 999 ML IV CONT (12:02)
[2024-04-19 12:27] LABS: Basophils Percent Auto 0.2 % (0.2-1.2); Eosinophils Percent Auto 0.2 % (0-4.4); Hematocrit 46.9 % (37.0-47.0); Hemoglobin 16.1 g/dL (12.0-15.0); Immature Granulocyte Absolute 0.06 K/mm3 (0.00-0.031); Immature Granulocyte Percent A 0.5 % (0-0.5); Lymphocytes Absolute Auto 1.33 K/mm3 (0.9-3.2); Mean Corpuscular HGB Conc 34.3 g/dl (32-36); Mean Corpuscular Hemoglobin 29.5 pg (26-34); Mean Corpuscular Volume 85.9 fl (80-100); Monocytes Absolute Auto 0.6 K/mm3 (0.1-0.6); Monocytes Percent Auto 4.1 % (2.6-8.5); Neutrophils Absolute Auto 11.3 K/mm3 (1.3-6.7); Platelet Count Result 371 k/mm3 (150-375); Red Blood Count 5.46 M/mm3 (4.2-5.4); Red Cell Distribution Width 12.9 % (11.5-14.5); White Blood Count 13.3 K/mm3 (4.5-10.0)
[2024-04-19 12:30] LABS: Add Urine Microscopic? NO; Appearance Urine Clear (Clear); Bilirubin Urine Negative (Negative); Blood Urine Negative (Negative); Color Urine Yellow (Yellow); Glucose Urine UA Negative (Negative); Ketones Urine Negative (Negative); Leukocyte Esterase Ur Negative LEU/UL (Negative); Nitrate Urine Negative (Negative); Protein Urine Negative (Negative); Specific Grav Ur 1.003 (1.001-1.035); Urobilinogen Urine 0.2 mg/dL (<2.0); pH Urine 6.5 (5.0-9.0)
[2024-04-19 12:37] LABS: Alanine Aminotransferase 33 U/L (6-35); Alkaline Phosphatase 128 U/L (38-126); Anion Gap 12 mmol/L (4-12); Aspartate Amino Transferase 35 U/L (14-36); Bilirubin,Total 0.9 mg/dL (0.2-1.3); Blood Urea Nitrogen 13 mg/dL (7-17); Calcium 9.7 mg/dL (8.4-10.2); Carbon Dioxide 25 mmol/L (22-30); Chloride 101 mmol/L (98-107); Estimated CRCL calculation 60 ml/min; Estimated Glomerular Filt Rate > 60; Glucose 150 mg/dL (65-110); Lipase 78 U/L (23-300); Potassium 3.6 mmol/L (3.4-5.0); Sodium 138 mmol/L (137-145)
--- NOTE | 2024-04-19 13:15 | ED.GENADULT ---
HPI - General Adult General Chief complaint: Unspecified Stated complaint: I've been sick for 10 days Time Seen by Provider: 04/19/24 11:09 History of Present Illness HPI narrative: This is a 63-year-old female with a week and half of URI symptoms. Started off with cough and congestion. She has not developed diarrhea and loose stools over the last several days. She denies fevers chills chest pain difficulty breathing. She has some crampy abdominal pain that is relieved by the diarrhea. No urinary symptoms. Related Data Home Medications Medication Instructions Recorded Confirmed acidophilus 100 million 1 cap PO DAILY 08/23/21 11/09/23 cell-pectin, citrus 10 mg capsule aspirin 81 mg tablet 81 mg PO DAILY 08/23/21 11/09/23 calcium 600 mg capsule 1,200 mg PO DAILY 08/23/21 11/09/23 cholecalciferol (vitamin D3) 25 25 mcg PO DAILY 08/23/21 11/09/23 mcg (1,000 unit) capsule (Vitamin D3) krill 1,000 mg-omega-3 170 mg-dha 1 cap PO BID 08/23/21 11/09/23 50 mg-epa 80 of-rzdmtt-naauv capsule (krill oil) ntghkwevzsse-zljczggi-pfdcgy tablet 1 tablet PO DAILY 08/23/21 11/09/23 vitamin B complex 1 cap PO DAILY 08/23/21 11/09/23 apple cider vinegar 500 mg tablet mg PO 09/15/21 11/09/23 Allergies Allergy/AdvReac Type Severity Reaction Status Date / Time apple AdvReac Itching Verified 11/09/23 10:10 [facility] Past Medical History Medical History COPD (chronic obstructive pulmonary disease) History of skin cancer History of uterine cancer Ovarian cancer in remission Tobacco abuse Tremor Surgical History Surgical History History of hysterectomy with bilateral oophorectomy History of laparoscopic appendectomy 08/23/21 History of laparoscopic cholecystectomy Family History Family History Mother Kidney failure Father Diabetes mellitus FHx: kidney cancer Sibling Diabetes mellitus Social History Social History Social History: Smoking packs per day: 1 Smoking cigarettes per day: 20.0 Smoking status: Current every day smoker Tobacco type: cigarettes Second hand tobacco smoke exposure: No Alcohol intake: never Alcohol use details: rarely Substance use: never Substance use type: does not use Do You Feel Safe in your Home?: Yes Lack of Transportation: No Lack of Food: Never True Current Housing: I Have Housing Concerned About Future Housing: No Difficulty Paying Gas/Electric Bills: No Difficulty Paying for Meds: No Currently Unemployed: YES Education: Don't Know Difficulty w/ Childcare or Family Care: No Living arrangements: with family Occupation/Education: occupation Gender identity (if verbalized by the patient): Female Sexual Orientation (if Verbalized by the Patient): Straight or Heterosexual Spiritual care concerns: No Exam Narrative: APPEARANCE: Benign essential tremor, well-appearing Head: atraumatic. EYES: EOMI, NOSE: Atraumatic NECK: Trachea midline RESPIRATORY: No increased rate of breathing clear to auscultation CARDIOVASCULAR: Mild tachycardia ABDOMINAL: Soft nontender no guarding rebound MUSCULOSKELETAl: No obvious deformities NEURO: Alert. Moving 4/4 extremities SKIN:: Warm, dry. Normal color PSYCHIATRIC: Normal affect Course Vital Signs Vital signs: Vital Signs Temperature 97.6 F 04/19/24 10:48 Pulse Rate 110 H 04/19/24 10:48 Respiratory Rate 17 04/19/24 10:48 Blood Pressure 144/76 H 04/19/24 10:48 Pulse Oximetry 96 04/19/24 10:48 Oxygen Delivery Room Air 04/19/24 10:48 Temperature 97.6 F 04/19/24 10:48 Pulse Rate 110 H 04/19/24 10:48 Respiratory Rate 20 04/19/24 11:25 Blood Pressure 144/76 H 04/19/24 10:48 Pulse Oximetry 99 04/19/24 11:25 Oxygen Delivery Room
[2024-04-19 13:25] VITALS: BP 116/77; PULSE 85; RESP 16; TEMP 36.4; O2SAT 96
== END 2024-04-19 13:40 | disposition home or self-care (01) ==
PROVIDERS: Emergency Provider Emergency Medicine; PCP Family Medicine
DX: B34.9 Viral infection, unspecified (principal); Z20.822 Contact with and (suspected) exposure to COVID-19; J44.9 Chronic obstructive pulmonary disease, unspecified; G25.0 Essential tremor; F17.210 Nicotine dependence, cigarettes, uncomplicated; Z85.828 Personal history of other malignant neoplasm of skin; Z85.42 Personal history of malignant neoplasm of other parts of uterus; Z85.43 Personal history of malignant neoplasm of ovary; Z90.710 Acquired absence of both cervix and uterus; Z90.722 Acquired absence of ovaries, bilateral; Z90.49 Acquired absence of other specified parts of digestive tract; Z79.82 Long term (current) use of aspirin
CPT/HCPCS: 36415; 71045; 80053; 81003; 83690; 85025; 87636; 93005; 96361; 96372; 96374; 99284; J0500; J1885; J7030

== ENCOUNTER 2025-01-24 13:43 | Outpatient (CLI) | payer MEDICARE, OTHER, SELFPAY ==
--- NOTE | ~2025-01-24 | MM_ITS ---
EXAMINATION: MM screening lupe BI w oscar HISTORY: Screening mammogram TECHNIQUE: Craniocaudal and mediolateral oblique 3-D tomosynthesis images were obtained and synthetic 2-D images were generated. CAD analysis was submitted and interpreted. COMPARISON: 11/25/2023, 11/12/2021 BREAST PARENCHYMAL COMPOSITION:Dense: The breasts are heterogeneously dense, which may obscure small masses. FINDINGS: No suspicious mass, calcification, or architectural distortion are identified in either taylor ast to suggest malignancy. There has been no suspicious interval change. IMPRESSION: No mammographic evidence of malignancy. Recommend routine screening mammography in one year. BI-RADS Category 1: Negative Reviewed, dictated and finalized at location .
== END 2025-01-24 13:44 | disposition home or self-care (01) ==
LOC: ANHIMG 13:46
PROVIDERS: PCP Family Medicine; Visit Provider Family Medicine
DX: Z12.31 Encounter for screening mammogram for malignant neoplasm of breast (principal)
CPT/HCPCS: 77063; 77067

== ENCOUNTER 2025-02-05 08:05 | Emergency (ER) | payer MEDICARE, OTHER, SELFPAY ==
--- NOTE | 2025-02-05 08:06 | ED.LOWEXIN ---
HPI - Extremity Injury (Lower) General Chief Complaint: Skin/Abscess/Foreign Body Stated Complaint: LT Foot Pain Time Seen by Provider: 02/05/25 08:06 Source: patient Mode of arrival: ambulatory Limitations: no limitations History of Present Illness HPI Narrative: Talia is a 64-year-old female patient presenting to the clinic today with complaints of a bee sting to the bottom of the 2nd toe of the left foot. She reports this occurred on Tuesday. States she walked barefoot in the grass and felt something sting her. She thinks it may have been a honey bee. States the area became itchy and swollen. Has taken Benadryl, hydrocortisone cream, applied ice, and also used Epson salt soaks. States this morning the toe feels better however the swelling is now extending into her foot and she has to large blisters to the medial and lateral 2nd toe. Rates pain 1/10 currently. No fevers, chills, or body aches. Denies any shortness of breath, chest pain, drooling, tongue swelling, or difficulty breathing. Related Data Home Medications ?Medication ?Instructions ?Recorded ?Confirmed ?Last Taken ?Type acidophilus 100 million 1 cap PO DAILY 08/23/21 12/04/24 Unknown History cell-pectin, citrus 10 mg capsule aspirin 81 mg tablet 81 mg PO DAILY 08/23/21 12/04/24 Unknown History calcium 600 mg capsule 1,200 mg PO DAILY 08/23/21 12/04/24 08/22/21 History cholecalciferol (vitamin D3) 25 25 mcg PO DAILY 08/23/21 12/04/24 Unknown History mcg (1,000 unit) capsule (Vitamin D3) krill 1,000 mg-omega-3 170 mg-dha 1 cap PO BID 08/23/21 12/04/24 Unknown History 50 mg-epa 80 xj-aliqrc-ogdam capsule (krill oil) oixudduewllz-gnewsfdd-upivzc tablet 1 tablet PO DAILY 08/23/21 12/04/24 Unknown History vitamin B complex 1 cap PO DAILY 08/23/21 12/04/24 Unknown History apple cider vinegar 500 mg tablet mg PO 09/15/21 12/04/24 Unknown History Allergies Allergy/AdvReac Type Severity Reaction Status Date / Time apple AdvReac Itching Verified 02/05/25 08:07 Review of Systems Review of Systems: Pertinent positives per HPI. Patient denies any fever, chills, rash, headache, visual changes, dizziness, cough, runny nose, sore throat, shortness of breath, chest pain, palpitations, nausea, vomiting, diarrhea, constipation, abdominal pain, or any urinary issues. [facility] Past Medical History Medical History History of skin cancer History of uterine cancer Tremor Tobacco abuse COPD (chronic obstructive pulmonary disease) Ovarian cancer in remission Surgical History Surgical History History of laparoscopic appendectomy 08/23/21 History of laparoscopic cholecystectomy History of hysterectomy with bilateral oophorectomy Family History Family History Mother Kidney failure Father Diabetes mellitus FHx: kidney cancer Sibling Diabetes mellitus Social History Social History Social History: Smoking packs per day: 1 Smoking cigarettes per day: 20.0 Smoking status: Current every day smoker Tobacco type: cigarettes Second hand tobacco smoke exposure: No Alcohol intake: never Alcohol use details: rarely Substance use: never Substance use type: does not use Do You Feel Safe in your Home?: Yes Lack of Transportation: No Lack of Food: Never True Current Housing: I Have Housing Concerned About Future Housing: No Difficulty Paying Gas/Electric Bills: No Difficulty Paying for Meds: No Currently Unemployed: No Education: Don't Know Difficulty w/ Childcare or Family Care: No Living arrangements: with family Occupation/Education: unemployed Gender identity (if verbalized by the patient): Female Sexual Orientation (if Verbalized by the Patient): Straight or Heterosexual Spiritual care concerns: No Comments At the time of my signature, I reviewed and agree with the nursing past medical, surgical, social, and family history. There is no relevant family history pertinent to the patient complaint. Exam Narrative: General: Well-developed, well nourished, in no apparent distress Head: Normocephalic, atraumatic. Cardio: Regular rate and rhythm, s1 and s2 normal, no murmur appreciated. Resp: Clear to auscultation bilaterally, no rhonchi, rales, wheezing or rubs. Integumentary: [place], warm, and dry, insect sting to the bottom of the left 2nd toe with swelling to the left toe and extending into the left midfoot, 2 large blisters to the lateral and medial 2nd toe, mild erythema without redness, no purulent discharge, mildly tender to palpation Course Course Emergency Course: Portions of this record may have been created with voice recognition software. Level of Care: Express Care Visit Vital Signs Vital signs: Vital Signs Temperature 36.4 C 02/05/25 08:10 Pulse Rate 82 02/05/25 08:10 Respiratory Rate 16 02/05/25 08:10 Blood Pressure 145/84 H 02/05/25 08:10 Pulse Oximetry 97 02/05/25 08:10 Oxygen Delivery Room Air 02/05/25 08:10 Temperature 36.4 C 02/05/25 08:10 Pulse Rate 82 02/05/25 08:10 Respiratory Rate 16 02/05/25 08:10 Blood Pressure 145/84 H 02/05/25 08:10 Pulse Oximetry 97 02/05/25 08:10 Oxygen Delivery Room Air 02/05/25 08:10 Vital signs reviewed MDM - Extremity Injury (Lower) MDM Narrative Medical decision making narrative: At the time of visit patient is resting comfortably on the exam table. Patient appears to be nontoxic. Patient has accidental insect sting to the left 2nd toe with general allergic reactions-swelling and blistering. Reports that the area is itchy. Rates the discomfort a 1/10 currently. Has completed Epson salt soaks, Benadryl, ice pack, and Tylenol as needed for pain. No fevers chills or body aches. Denies any shortness of breath, chest pain, drooling, difficulty swallowing, or tongue swelling. Vital signs are stable. Has 2 large blisters to the lateral and medial 2nd toe with swelling to the left 2nd toe extending into the midfoot. Plan: I suspect patient likely has an allergic reaction due to an insect sting. Prescription for 10 day course of prednisone and triamcinolone cream was sent to the pharmacy. Recommend to continue use of Benadryl and ice and keep lower extremities elevated. May take Tylenol/Motrin as needed for pain or fever. Signs and symptoms of infection was reviewed with the patient. Supportive measures were discussed with the patient and they voiced understanding discharge instructions and agrees to treatment plan. Return precautions reviewed Differential Diagnosis Differential diagnosis: Likely fracture of toe and other (Foot FX, sprain, contusion, soft tissue injury, cellulitis, allergic reaction, insect sting) Discharge Plan Discharge Clinical Impression: Allergic reaction to insect sting Patient Disposition: Home Condition: Stable Instructions: Antibiotic Form, Insect Bite or Sting (ED), General Allergic Reaction (ED) Additional Instructions: Apply triamcinolone cream as directed Take prednisone as directed Avoid scratching as this can cause a secondary infection Allow the blisters to pop on their own May apply ice pack to the affected area to help alleviate pain and swelling May take Benadryl 25-50mg every 6 hours as needed for itching. Follow up with your PCP in 3-5 days if symptoms persist or sooner if they worsen Go to the Emergency Room if symptoms worsen- fever, rash spreading with treatment, shortness of breath, tongue swelling, drooling, or chest pain Patient Language: Marshallese Prescriptions: New triamcinolone acetonide 0.1 % cream 1 applic topical BID 7 Days Qty: 30 0RF prednisone 10 mg tablet 10 mg PO DAILY Qty: 30 0RF Rx Instructions: 60mg po daily on day 1, 40mg po daily on days 2-4, 30mg po daily on days 5-6, 20mg po daily on days 7-8, 10mg po daily on days 9-10 No Action apple cider vinegar 500 mg tablet PO propranolol 20 mg tablet 20 mg PO Q12H Qty: 30 0RF dicyclomine 20 mg tablet 20 mg PO BID Qty: 30 0RF calcium 600 mg Capsule 1,200 mg PO DAILY aspirin 81 mg Tablet 81 mg PO DAILY vitamin B complex Capsule 1 cap PO DAILY cholecalciferol (vitamin D3) [Vitamin D3] 25 mcg (1,000 unit) Capsule 25 mcg PO DAILY fxivssycgdyf-lxjyzybx-rryzda Tablet 1 tablet PO DAILY acidophilus-pectin, citrus 100 million cell-10 mg Capsule 1 cap PO DAILY eoluc-ma-5-xtq-meu-tsfigkt-ast [krill oil] 1,556-752-06-80 mg Capsule 1 cap PO BID Follow-up/Referrals: Rudy Carlson MD [Primary Care Provider] - Time of Disposition: 08:21 Quality NIHSS Nursing Documentation ED NIHSS nursing documentation: reviewed/agree
[2025-02-05 08:10] VITALS: BP 145/84; PULSE 82; RESP 16; TEMP 36.4; O2SAT 97
== END 2025-02-05 08:22 | disposition home or self-care (01) ==
PROVIDERS: Emergency Provider Nurse Practitioner Family; PCP Family Medicine
DX: T63.441A Toxic effect of venom of bees, accidental (unintentional), initial encounter (principal); F17.210 Nicotine dependence, cigarettes, uncomplicated; J44.9 Chronic obstructive pulmonary disease, unspecified; Z85.828 Personal history of other malignant neoplasm of skin; Z85.42 Personal history of malignant neoplasm of other parts of uterus; Z85.43 Personal history of malignant neoplasm of ovary; Z90.722 Acquired absence of ovaries, bilateral
CPT/HCPCS: 99213; G0463